=== PATIENT | female | born 1985 | race Hispanic/Latino ===

== ENCOUNTER 2025-05-12 17:50 | Inpatient (IN) | payer MEDICAID, OTHER, SELFPAY ==
[2025-05-12 18:00] VITALS: BMI 30.8
[2025-05-12] MEDS ORDERED: hydrALAZINE 20 MG/ML VIAL SLOW IVP PRN (18:52)
[2025-05-12 19:39] LABS: Hematocrit 32.7 % (34.9-44.5); Hemoglobin 10.3 g/dL (12.0-15.5); Mean Corpuscular Hemoglobin 25.0 pg (27.0-33.0); Mean Corpuscular Volume 79.4 fL (81.6-98.3); Platelet Count 270 10x3/uL (150-450); Red Blood Cell (RBC) Count 4.12 10x6/uL (3.90-5.03); White Blood Cell (WBC) Count 9.70 10x3/uL (3.5-10.5)
[2025-05-12 19:43] LABS: #Basophils 0.03 10x3/uL (0.0-0.2); #Eosinophils Less than 0.03 10x3/uL (0.0-0.5); #Monocytes 0.57 10x3/uL (0.0-1.1); #Neutrophils 7.35 10x3/uL (1.5-8.4); %Basophils 0.3 % (0.0-2.0); %Eosinophils 0.2 % (0.0-6.0); %Lymphocytes 16.4 % (18.0-47.0); %Monocytes 5.9 % (0.0-10.0); %Neutrophils 76.8 % (40.0-75.0)
[2025-05-12 19:46] LABS: ALT (SGPT) 11 U/L (Less than 34); AST (SGOT) 19 U/L (11-34); Albumin 2.9 g/dL (3.1-4.5); Alkaline Phosphatase 200 U/L (40-110); Anion Gap 13 mmol/L (10-20); BUN (Urea Nitrogen) 7 mg/dL (7.0-18.7); Bilirubin, Total 0.2 mg/dL (0.3-1.2); Calc. Creatinine Clearance 145 mL/min (70-130); Calcium 9.2 mg/dL (7.8-10.44); Carbon Dioxide 20 mmol/L (22-29); Chloride 108 mmol/L (98-107); Globulin 3.9 g/dL (2.4-3.5); Glucose 113 mg/dL (70-105); Potassium 3.9 mmol/L (3.5-5.1); Sodium 137 mmol/L (136-145)
[2025-05-12 20:38] LABS: Protein, Urine Random Quant 24.0 mg/dL (1-14)
[2025-05-13] MEDS ORDERED: Tranexamic Acid 1,000 MG/10 ML VIAL IVP PRN (00:46)
[2025-05-13] MEDS ORDERED: Diphenoxylate HCl/Atropine Tablet PO PRN ×2 (00:46)
[2025-05-13] MEDS ORDERED: Acetaminophen 500 MG TAB PO PRN (00:46)
[2025-05-13] MEDS ORDERED: Ondansetron PF 4 MG/2 ML Vial IVP PRN ×4 (00:46→09:54)
[2025-05-13] MEDS ORDERED: hydrALAZINE 20 MG/ML VIAL SLOW IVP PRN ×2 (00:46→09:12)
[2025-05-13] MEDS ORDERED: Carboprost 250 MCG/ML AMP IM PRN (00:46)
[2025-05-13 01:42] LABS: Hematocrit 33.7 % (34.9-44.5); Hemoglobin 10.4 g/dL (12.0-15.5); Mean Corpuscular Hemoglobin 24.9 pg (27.0-33.0); Mean Corpuscular Volume 80.6 fL (81.6-98.3); Platelet Count 261 10x3/uL (150-450); Red Blood Cell (RBC) Count 4.18 10x6/uL (3.90-5.03); White Blood Cell (WBC) Count 10.34 10x3/uL (3.5-10.5)
[2025-05-13 02:54] LABS: Syphilis Antibody Index 0.04 S/CO (<1.00 Non-Reactive)
[2025-05-13] MEDS: Famotidine/PF 20 mg/2ml Vial SLOW IVP PRN (07:06)
[2025-05-13] MEDS: Bicitra 30 ML UDCUP PO PRN (07:06)
[2025-05-13] MEDS ORDERED: HYDROcodone/Acetaminophen 5/325 mg Tablet PO PRN ×2 (09:12)
[2025-05-13] MEDS ORDERED: Methylergonovine 0.2 MG/ML VIAL IM PRN (09:12)
[2025-05-13] MEDS ORDERED: Acetaminophen 325 MG TAB PO PRN (09:12)
[2025-05-13] MEDS ORDERED: Bisacodyl 10 MG SUPP PR PRN (09:12)
[2025-05-13] MEDS ORDERED: Lanolin Ointment 7 GM TUBE TOP PRN (09:12)
[2025-05-13] MEDS ORDERED: Methylergonovine 0.2 MG TAB PO PRN (09:12)
[2025-05-13] MEDS ORDERED: diphenhydrAMINE 25 MG CAP PO PRN (09:12)
[2025-05-13] MEDS ORDERED: Oxytocin 30 units/NS 500 ML 500 ML IV SCH (09:15)
[2025-05-13] MEDS ORDERED: Meperidine HCl/PF 25 MG (1 mL) VIAL SLOW IVP PRN (09:54)
[2025-05-13] MEDS ORDERED: diphenhydrAMINE 50 MG/ML VIAL IVP PRN (09:54)
[2025-05-13] MEDS ORDERED: Communication Order-Pharmacy FS SCH (10:00)
[2025-05-13] MEDS: Oxytocin 30 units/NS 500 ML 500 ML IV SCH (10:25)
[2025-05-13] MEDS ORDERED: Measles/Mumps/Rubella 10 MCG/0.5 ML VIAL SC ONE (11:00)
[2025-05-13] MEDS ORDERED: Boostrix 0.5 ML (Tdap) VIAL (>/=7 yrs of age) IM ONE (11:00)
[2025-05-13] MEDS: Hepatitis B Vaccine 10 MCG/0.5 ML SYR ONE (15:55)
[2025-05-13] MEDS: Erythromycin Base 0.5% Oint 1 GM TUBE ONE (15:55)
[2025-05-13] MEDS: Ondansetron PF 4 MG/2 ML Vial ONE (15:56)
[2025-05-13] MEDS: Phenylephrine 40 MG/NS 250 ML 250 ML ONE (15:56)
[2025-05-13] MEDS: Oxytocin 10 UNITS/ML VIAL ONE (15:56)
[2025-05-13] MEDS: Dexamethasone 10 MG/ML VIAL ONE (15:56)
[2025-05-13] MEDS: Ketorolac Tromethamine 30 MG (1 mL) VIAL ONE (15:57)
[2025-05-13] MEDS: Ketorolac Tromethamine 30 MG (1 mL) VIAL IVP SCH (16:01)
[2025-05-13] MEDS: Ferrous Sulfate 325 MG TAB PO SCH (21:31)
[2025-05-14 03:17] LABS: Hematocrit 26.1 % (34.9-44.5); Hemoglobin 8.1 g/dL (12.0-15.5); Mean Corpuscular Hemoglobin 25.2 pg (27.0-33.0); Mean Corpuscular Volume 81.1 fL (81.6-98.3); Platelet Count 228 10x3/uL (150-450); Red Blood Cell (RBC) Count 3.22 10x6/uL (3.90-5.03); White Blood Cell (WBC) Count 13.16 10x3/uL (3.5-10.5)
[2025-05-14 03:59] LABS: Hep B Surf Ag - L&D Non-Reactive S/CO (NonReactive)
[2025-05-14] MEDS ORDERED: HYDROcodone/Acetaminophen 5/325 mg Tablet PO PRN (09:10)
[2025-05-14] MEDS: Ibuprofen 800 MG TAB PO SCH (13:50)
[2025-05-14] MEDS: HYDROcodone/Acetaminophen 10/325 mg Tablet PO PRN (18:09)
[2025-05-14] MEDS: Acetaminophen 325 MG TAB PO PRN (18:11)
[2025-05-15 07:45] VITALS: BP 127/67; TEMP 97.8
[2025-05-15] MEDS: Simethicone Chewable 80 MG TAB PO PRN (07:55)
== END 2025-05-15 15:00 | disposition home or self-care (01) | DRG 788 ==
LOC: CSHLD/OP 17:50 → CSHLD 23:44 → UNDOADMIN 23:44 → CSHLD 05-13 05:53 → CSHPP 05-13 11:20
PROVIDERS: ADMIT Family Medicine; ATTEND Family Medicine
PROC: 10D00Z1 Extraction of Products of Conception, Low, Open Approach (ICD-10-PCS; principal; 2025-05-13)
DX: O13.4 Gestational [pregnancy-induced] hypertension without significant proteinuria, complicating childbirth (principal); O32.1XX0 Maternal care for breech presentation, not applicable or unspecified; O34.211 Maternal care for low transverse scar from previous cesarean delivery; Z37.0 Single live birth; Z3A.37 37 weeks gestation of pregnancy
CPT/HCPCS: 36415; 51702; 80053; 82570; 84156; 85025; 85027; 86780; 86850; 86900; 86901; 87340; 99285; J1100; J1308; J1885; J2274; J2405; J2590; J3010; J7120